=== PATIENT | male | born 1955 | race Caucasian/White ===

== ENCOUNTER 2019-07-01 12:37 | Outpatient (CLI) | payer MEDICARE, BC ==
--- NOTE | 2019-07-01 13:27 | XRAY Report ---
Reason: ANKLE PAIN Procedure Date: 07/01/2019 Accession Number: [id number] / [id number] Procedure: XR - Ankle 3 View RT CPT Code: Final Report FULL RESULT: EXAM: RIGHT ANKLE RADIOGRAPHY EXAM DATE: 07/01/2019 01:00 PM. CLINICAL HISTORY: ANKLE PAIN. Twisted ankle on 06/18/2019. COMPARISON: None. TECHNIQUE: 3 views. FINDINGS: Bones: There is a screw from medial to lateral within the body of the talus. There are no lucent or sclerotic lesions. There is no fracture. Joints: Small ankle joint effusion. No subluxations. The ankle mortise is normally aligned. Soft Tissues: Normal. No soft tissue swelling. IMPRESSION: 1. Small right ankle joint effusion. 2. Screw in the body of the talus. 3. No fracture or malalignment. RADIA The call report notification system was initiated by Dr. Gabe Fernandez at 01:27 PM on 07/01/2019.
== END 2019-07-01 12:38 | disposition home or self-care (01) ==
LOC: DI 12:37
PROVIDERS: ATTEND Internal Medicine
DX: M25.571 Pain in right ankle and joints of right foot (principal); M25.471 Effusion, right ankle

== ENCOUNTER 2019-09-07 12:05 | Outpatient (CLI) | payer MEDICARE, OTHER ==
--- NOTE | 2019-09-07 14:12 | XRAY Report ---
Reason: PAIN IN RIGHT ANKLE AND JOINTS OF RIGHT FOOT Procedure Date: 09/07/2019 Accession Number: [id number] / [id number] Procedure: XR - Foot 3 View RT CPT Code: Final Report FULL RESULT: EXAM: RIGHT FOOT RADIOGRAPHY EXAM DATE: 09/07/2019 12:30 PM. CLINICAL HISTORY: Pain in right ankle and joints of right foot. COMPARISON: None. TECHNIQUE: 3 views. FINDINGS: Bones: There are cortical step-offs at the mid diaphysis of the 1st proximal phalanx, consistent with fracture. No additional fractures detected. Intact fixation screw at the talus. No abnormal subcutaneous radiopaque foreign bodies identified. IMPRESSION: Findings consistent with nondisplaced fracture at the 1st proximal phalanx. RADIA
--- NOTE | 2019-09-07 14:12 | XRAY Report ---
Reason: PAIN IN RIGHT ANKLE AND JOINTS OF RIGHT FOOT Procedure Date: 09/07/2019 Accession Number: [id number] / [id number] Procedure: XR - Ankle 3 View RT CPT Code: Final Report FULL RESULT: EXAM: RIGHT ANKLE RADIOGRAPHY EXAM DATE: 09/07/2019 12:30 PM. CLINICAL HISTORY: Pain in right ankle and joints of right foot. COMPARISON: ANKLE 3 VIEW RT 07/01/2019 12:41 PM. TECHNIQUE: 3 views. FINDINGS: Bones: Intact screw at the talus. Subtle cortical step-off suggesting possible flake fracture at the distal aspect of the dorsal talus, seen on lateral view. No fractures identified elsewhere. Joints: Small ankle joint effusion suggested. Soft tissue prominence at the ankle. IMPRESSION: Question of small flake fracture at the distal talus, seen on lateral view. RADIA
== END 2019-09-07 12:06 | disposition home or self-care (01) ==
LOC: DI 12:05
PROVIDERS: ATTEND Internal Medicine
DX: M25.571 Pain in right ankle and joints of right foot (principal)

== ENCOUNTER 2020-09-20 12:50 | Inpatient (IN) | payer MEDICARE, BC ==
--- NOTE | 2020-09-20 14:16 | ED Physician Documentation ---
History of Present Illness - Stated complaint Stated Complaint: WOBBLY/INCOHERENT - Chief complaint Chief Complaint: General - History obtained from History obtained from: Patient, Family (sister) - Additonal information Additional information: 64-year-old gentleman arrives accompanied by his sister to the emergency department for evaluation of altered mental status this morning. He has a long history of epilepsy since age 8 and has had a couple of craniotomies for same the most recent being 40 years ago. He is never been seizure-free and he is still maintained on multiple seizure medications including Fycompa Depakote Trileptal and lorazepam. Recently the Fycompa doses have been going up. Early this morning he awoke with some neck pain and took a Percogesic. Then got up later and his sister said he was quite slow to answer questions and nodding off and his brain just did not seem to be working right. He seems back to baseline now without specific complaints. It is unclear if he took a single Percogesic or multiple since the patient does not actually remember getting up and taking it. Review of Systems Ten Systems: 10 systems reviewed and negative Constitutional: denies: Fever, Chills Eyes: reports: Reviewed and negative Ears: reports: Reviewed and negative Nose: reports: Reviewed and negative Throat: reports: Reviewed and negative Cardiac: reports: Reviewed and negative PD PAST MEDICAL HISTORY - Past Medical History Past Medical History: Yes Respiratory: COPD Neuro: Seizure disorder - Past Surgical History Past Surgical History: Yes Neuro: Craniotomy - Present Medications Home Medications: Ambulatory Orders Medication Instructions Recorded Confirmed Albuterol Sulf [Ventolin Hfa 40 mg .ROUTE DAILY 09/20/20 09/20/20 Inhaler] Atenolol [Tenormin] 25 mg PO DAILY 09/20/20 09/20/20 Budesonide [Pulmicort Flexhaler] 80 mcg .ROUTE BID 09/20/20 09/20/20 Divalproex ER [Depakote ER] 250 mg PO QID 09/20/20 09/20/20 Lorazepam [Ativan] 1 mg PO BID 09/20/20 09/20/20 OXcarbazepine [Trileptal] 600 mg PO BID 09/20/20 09/20/20 Perampanel [Fycompa] 8 mg PO DAILY 09/20/20 09/20/20 Pravastatin [Pravachol] 40 mg PO DAILY 09/20/20 09/20/20 Umeclidinium [place] [Incruse 62.5 mcg .ROUTE DAILY 09/20/20 09/20/20 Ellipta] Zonisamide [Zonegran] 100 mg PO QID 09/20/20 09/20/20 - Allergies Allergies/Adverse Reactions: Allergies Allergy/AdvReac Type Severity Reaction Status Date / Time Iodinated Contrast Media Allergy Rash Verified 09/20/20 13:02 - Social History Does the pt smoke?: Yes Smoking Status: Current every day smoker Does the pt drink ETOH?: No Does the pt have substance abuse?: Yes Substance Use and Type: CBD oil / Products - Immunizations Immunizations are current?: Yes - POLST Patient has POLST: No PD ED PE NORMAL - Vitals Vital signs reviewed: Yes - General General: No acute distress, Other (He is slow to answer questions, states the date is September 18, has some word finding difficulties, but the sister says he is at his baseline.) - HEENT HEENT: PERRL (With nystagmus) - Neck Neck: Supple, no meningeal sign, No bony TTP - Cardiac Cardiac: RRR, No murmur - Respiratory Respiratory: No respiratory distress - Abdomen Abdomen: Normal bowel sounds, Soft, Non tender - Back Back: No CVA TTP, No spinal TTP - Derm Derm: Normal color, Warm and dry - Extremities Extremities: No edema, No calf tenderness / cord - Neuro Neuro: No motor deficit, No sensory deficit, Other (He is alert oriented to person and place and close on time. He has good strength throughout all 4 extremities. He has nystagmus and mild ataxia on [id number] testing.) Eye Opening: Spontaneous Motor: Obeys Commands - Psych Psych: Normal mood, Normal affect Results - Vitals Vitals: Vital Signs - 24 hr 09/20/20 09/20/20 09/20/20 13:03 13:36 14:48 Temperature 36.4 C L Heart Rate 57 L 58 L 55 L Respiratory 18 14 21 Rate Blood Pressure 104/58 L 113/57 L 117/63 O2 Saturation 99 100 97 09/20/20 09/20/20 09/20/20 16:10 16:56 18:09 Temperature 36.7 C Heart Rate 61 55 L 59 L Respiratory 20 20 23 Rate Blood Pressure 129/67 113/61 118/72 O2 Saturation 99 100 100 09/20/20 20:07 Temperature Heart Rate 56 L Respiratory 18 Rate Blood Pressure 117/68 O2 Saturation 100 Oxygen O2 Source Room air - EKG (time done) 1508 Rate: Rate (enter#) (55) Rhythm: NSR [place]: Normal Intervals: Normal [place] QRS: Normal Ischemia: Normal ST segments Computer interpretation: Agree with computer - Labs Labs: Laboratory Tests 09/20/20 09/20/20 09/20/20 14:26 14:26 14:26 WBC 7.4 RBC 4.10 L Hgb 12.9 L Hct 40.4 L MCV 98.5 H MCH 31.5 H MCHC 31.9 L RDW 12.5 Plt Count 155 MPV 11.6 H Neut # (Auto) 3.5 Lymph # (Auto) 2.6 [place] # (Auto) 1.1 H Eos # (Auto) 0.2 Baso # (Auto) 0.0 Absolute Nucleated RBC 0.00 Nucleated RBC % 0.0 Sodium 147 H Potassium 4.7 Chloride 111 Carbon Dioxide 25 Anion Gap 11.0 BUN 20 Creatinine 0.7 Estimated GFR (MDRD) 114 Glucose 94 Calcium 9.6 Total Bilirubin 0.5 AST 20 ALT 18 Alkaline Phosphatase 45 Ammonia 66.1 H Total Protein 6.3 L Albumin 3.3 Globulin 3.0 Albumin/Globulin Ratio 1.1 Last Dose Date Not Reportable Last Dose Time Not Reportable Urine Opiates Screen Ur Oxycodone Screen Urine Methadone Screen Ur Propoxyphene Screen Ur Barbiturates Screen Valproic Acid 82.6 Ur Tricyclics Screen Ur Phencyclidine Scrn Ur Amphetamine Screen U Methamphetamines Scrn U Benzodiazepines Scrn Urine Cocaine Screen U Cannabinoids Screen Ethyl Alcohol < 5.0 09/20/20 09/20/20 09/20/20 16:21 17:55 17:55 WBC RBC Hgb Hct MCV MCH MCHC RDW Plt Count MPV Neut # (Auto) Lymph # (Auto) [place] # (Auto) Eos # (Auto) Baso # (Auto) Absolute Nucleated RBC Nucleated RBC % Sodium 146 H Potassium 4.1 Chloride 111 Carbon Dioxide 24 Anion Gap 11.0 BUN 22 H Creatinine 0.7 Estimated GFR (MDRD) 114 Glucose 105 H Calcium 9.7 Total Bilirubin AST ALT Alkaline Phosphatase Ammonia 67.0 H Total Protein Albumin Globulin Albumin/Globulin Ratio Last Dose Date UNKNOWN Last Dose Time UNKNOWN Urine Opiates Screen NEGATIVE Ur Oxycodone Screen NEGATIVE Urine Methadone Screen NEGATIVE Ur Propoxyphene Screen NEGATIVE Ur Barbiturates Screen NEGATIVE Valproic Acid 72.0 Ur Tricyclics Screen NEGATIVE Ur Phencyclidine Scrn NEGATIVE Ur Amphetamine Screen NEGATIVE U Methamphetamines Scrn NEGATIVE U Benzodiazepines Scrn POSITIVE H Urine Cocaine Screen NEGATIVE U Cannabinoids Screen NEGATIVE Ethyl Alcohol 09/20/20 09/20/20 21:41 21:41 WBC RBC Hgb Hct MCV MCH MCHC RDW Plt Count MPV Neut # (Auto) Lymph # (Auto) [place] # (Auto) Eos # (Auto) Baso # (Auto) Absolute Nucleated RBC Nucleated RBC % Sodium 146 H Potassium 4.2 Chloride 107 Carbon Dioxide 24 Anion Gap 15.0 H BUN 20 Creatinine 0.7 Estimated GFR (MDRD) 114 Glucose 109 H Calcium 9.5 Total Bilirubin AST ALT Alkaline Phosphatase Ammonia 82.4 H* Total Protein Albumin Globulin Albumin/Globulin Ratio Last Dose Date Not Reportable Last Dose Time Not Reportable Urine Opiates Screen Ur Oxycodone Screen Urine Methadone Screen Ur Propoxyphene Screen Ur Barbiturates Screen Valproic Acid 60.6 Ur Tricyclics Screen Ur Phencyclidine Scrn Ur Amphetamine Screen U Methamphetamines Scrn U Benzodiazepines Scrn Urine Cocaine Screen U Cannabinoids Screen Ethyl Alcohol - Rads (name of study) Ct Head Radiology: Final report received, Discussed with venkat JACK MEDICAL DECISION MAKING - ED course ED course: 64-year-old gentleman with long history of epilepsy on multiple meds for same presents with altered mental status now improved. He did have mild asterixis on exam and is on Depakote. So VHE is a possibility as well as hyponatremia from the Trileptal, or supratherapeutic levels of any of his other meds. He was found to have hyperammonemia at a level of 66 with a therapeutic Depakote level at 82.6. This was discussed with poison control and they recommend p.o. fluids, free water especially noting the sodium is up and a redraw in 4 hours to make sure it is improving and if so he could probably be discharged if no other pertinent positive findings on a decreased dose of Depakote. IMPRESSION: 1. CT head without acute intracranial abnormalities. Specifically, no acute hemorrhage, suspicious mass, or mass effect. 2. Chronic right frontoparietal encephalomalacia underlying prior surgical changes of right frontal craniotomy. 3. Age-related senescent changes and sequela of chronic small vessel ischemic disease. 4. Asymmetrically sized choroid plexus with the right side being larger than the left. No mass effect or hydrocephalus. At 6 PM the levels were redrawn, his Depakote level went down to 72 but the ammonia was basically the same. I recontacted poison control and this time he had me to speak with the boots and shoes supervisor, Dr. Xie. He said to check it again in 4 hours because they definitely want to see the ammonia trending down before discharge. 10 PM levels unfortunately continue to show even more of an elevation in ammonia and spoke with Dr. Zazueta and he will observe the patient. Departure - Departure Disposition: ED Place in Observation Clinical Impression: Hyperammonemia, Encephalopathy Epilepsy Qualifiers: Epilepsy type: unspecified Intractability: intractable Status epilepticus: without status epilepticus Qualified Code(s): G40.919 - Epilepsy, unspecified, intractable, without status epilepticus Condition: Stable
[2020-09-20 14:35] LABS: BASOPHILS % (AUTO) 0.4 %; EOSINOPHILS # (AUTO) 0.2 10^3/uL (0.0-0.7); HCT - HEMATOCRIT 40.4 % (42.0-52.0); HGB - HEMOGLOBIN 12.9 g/dL (14.0-18.0); LYMPHOCYTES # (AUTO) 2.6 10^3/uL (1.5-3.5); LYMPHOCYTES % (AUTO) 35.3 %; MEAN CORPUSCULAR HEMOGLOBIN 31.5 pg (27.0-31.0); MEAN CORPUSCULAR HGB CONC 31.9 g/dL (32.0-36.0); MEAN CORPUSCULAR VOLUME 98.5 fL (80.0-94.0); MEAN PLATELET VOLUME 11.6 fL (7.4-11.4); MONOCYTES # (AUTO) 1.1 10^3/uL (0.0-1.0); MONOCYTES % (AUTO) 14.5 %; NEUTROPHILS # (AUTO) 3.5 10^3/uL (1.5-6.6); NEUTROPHILS % (AUTO) 47.4 %; PLT - PLATELET COUNT 155 10^3/uL (130-450); RED CELL DISTRIBUTION WIDTH 12.5 % (12.0-15.0); WHITE BLOOD COUNT 7.4 x10^3/uL (4.8-10.8)
[2020-09-20 14:49] LABS: ALBUMIN 3.3 g/dL (3.2-5.5); ALBUMIN/GLOBULIN RATIO 1.1 (1.0-2.2); ALKALINE PHOSPHATASE 45 IU/L (42-121); ALT ALANINE AMINOTRANSFERASE 18 IU/L (10-60); AST ASPARTATE AMINOTRANSFERASE 20 IU/L (10-42); BILIRUBIN,TOTAL 0.5 mg/dL (0.2-1.0); BUN - BLOOD UREA NITROGEN 20 mg/dL (6-20); CALCIUM 9.6 mg/dL (8.5-10.3); CARBON DIOXIDE - CO2 25 mmol/L (21-32); CHLORIDE 111 mmol/L (101-111); CREATININE 0.7 mg/dL (0.6-1.2); ETOH - ETHANOL < 5.0 mg/dL; GFR - MDRD 114 (>89); GLUCOSE 94 mg/dL (70-100); POTASSIUM 4.7 mmol/L (3.5-5.0); SODIUM 147 mmol/L (135-145); TOTAL PROTEIN 6.3 g/dL (6.7-8.2); VALPROIC ACID (DEPAKOTE) 82.6 ug/mL
--- NOTE | 2020-09-20 15:42 | CT Report ---
PROCEDURE: HEAD WO INDICATIONS: altered TECHNIQUE: Noncontrast 4.5 mm thick angled axial sections acquired from the foramen magnum to the vertex. For r adiation dose reduction, the following was used: automated exposure control, adjustment of mA and/or kV according to patient size. COMPARISON: None. FINDINGS: Image quality: Excellent. CSF spaces: Basal cisterns are patent. No extra-axial fluid collections. Ventricles are symmetric in size and configuration. Brain: No midline shift. No intracranial masses or acute intracranial hemorrhage. Sifuentes-white matte r interface is normal. There is right frontoparietal encephalomalacia underlying postsurgical change s of previous right frontal craniotomy. There is asymmetric size of choroid plexus bilaterally. This is seen in the trigone region of the lateral ventricles. The right side is larger than the left. Chor oid plexus calcifications are present. There is also mild diffuse cortical volume loss. Mild perivent ricular white matter hypodensity in relation compatible with sequela of chronic small vessel ischemic disease. Atherosclerotic calcifications of the bilateral intracranial segments of the internal carot id arteries are visualized. Skull and face: Calvarium and visualized facial bones are intact, without suspicious lesions or acut e calvarial fractures. Postoperative changes from remote right frontal craniotomy.. Sinuses: Visualized sinuses and mastoids are clear. IMPRESSION: 1. CT head without acute intracranial abnormalities. Specifically, no acute hemorrhage, suspicious ma ss, or mass effect. 2. Chronic right frontoparietal encephalomalacia underlying prior surgical changes of right frontal c raniotomy. 3. Age-related senescent changes and sequela of chronic small vessel ischemic disease. 4. Asymmetrically sized choroid plexus with the right side being larger than the left. No mass effect or hydrocephalus. Reviewed by: Luis Vogt MD on 09/20/2020 3:41 PM PDT Approved by: Luis Vogt MD on 09/20/2020 3:41 PM PDT Station ID: [id number]
[2020-09-20 16:28] LABS: MUDS CUTOFF CONCENTRATIONS CUTOFF CONC BELOW:
[2020-09-20 16:40] LABS: AMPHETAMINE SCREEN,URINE NEGATIVE (NEGATIVE); BARBITURATE SCREEN,UR NEGATIVE (NEGATIVE); BENZODIAZEPINES SCREEN, URINE POSITIVE (NEGATIVE); COCAINE SCREEN URINE NEGATIVE (NEGATIVE); METHADONE SCREEN, URINE NEGATIVE (NEGATIVE); METHAMPHETAMINES SCREEN, URINE NEGATIVE (NEGATIVE); OPIATE SCREEN, URINE NEGATIVE (NEGATIVE); OXYCODONE SCREEN, URINE NEGATIVE (NEGATIVE); PROPOXYPHENE SCREEN, URINE NEGATIVE (NEGATIVE); THC CANNABINOID SCREEN, URINE NEGATIVE (NEGATIVE); TRICYCLIC ANTIDEPRESSANT,URINE NEGATIVE (NEGATIVE)
[2020-09-20 18:15] LABS: BUN - BLOOD UREA NITROGEN 22 mg/dL (6-20); CALCIUM 9.7 mg/dL (8.5-10.3); CARBON DIOXIDE - CO2 24 mmol/L (21-32); CHLORIDE 111 mmol/L (101-111); CREATININE 0.7 mg/dL (0.6-1.2); GFR - MDRD 114 (>89); GLUCOSE 105 mg/dL (70-100); POTASSIUM 4.1 mmol/L (3.5-5.0); SODIUM 146 mmol/L (135-145)
[2020-09-20] MEDS ORDERED: DEXTROSE 5%-0.45% NACL 1,000 ML IV STA (18:56)
[2020-09-20 22:02] LABS: BUN - BLOOD UREA NITROGEN 20 mg/dL (6-20); CALCIUM 9.5 mg/dL (8.5-10.3); CARBON DIOXIDE - CO2 24 mmol/L (21-32); CHLORIDE 107 mmol/L (101-111); CREATININE 0.7 mg/dL (0.6-1.2); GFR - MDRD 114 (>89); GLUCOSE 109 mg/dL (70-100); POTASSIUM 4.2 mmol/L (3.5-5.0); SODIUM 146 mmol/L (135-145); VALPROIC ACID (DEPAKOTE) 60.6 ug/mL
[2020-09-20] MEDS ORDERED: LORazepam 2 MG/ML VIAL IVP STA (22:16)
[2020-09-20] MEDS ORDERED: NICOTINE 21 MG PATCH TOP STA (22:16)
[2020-09-20] MEDS ORDERED: ONDANSETRON ODT 4 MG TABLET TL PRN (22:32)
[2020-09-20] MEDS ORDERED: ACETAMINOPHEN 325 MG TABLET PO PRN (22:32)
[2020-09-20] MEDS ORDERED: SODIUM CHLORIDE FLUSH 0.9% 10 ML SYRINGE IVP PRN (22:32)
--- NOTE | 2020-09-20 22:35 | HISTORY & PHYSICAL EXAMINATION ---
Chief Complaint - Chief Complaint Chief Complaint: Unsteadiness History of Present Illness - Admitted From Admitted From:: Home - History Obtained From Records Reviewed: Yes History obtained from: Patient, Sister, ER Physician, EMR - History of Present Illness HPI Comment/Other: This is a 64-year-old male with a past medical history significant for epilepsy, COPD who presents today from home as his sister was concerned that he was quite unsteady on his feet. History is obtained from both the patient and his sister who is present at bedside. The patient has unfortunately poorly controlled epilepsy with near daily seizures. He is on multiple antiepileptics at home. His sister tells me that he is normally a little unsteady and can be interm ittently confused and due to the antiepileptics as well as occasional episodes of being postictal. He can also be mildly sedated at times it due to the Ativan he is on. She states that this morning he was much more unsteady compared to usual and was not himself. The patient admits to taking Percogesic and believes he only took 1 tablet last night. He takes this once a week for ankle pain which is chronic for him. His most recent seizure was today in the emergency department. He reports that they are usually minor and predominately involve his head and right upper extremity. He does not have grand mal seizures. His neurologist is at [facility]. He was recently started on a new medication called Fycompa. He has been on Depakote for many years. He denies any prior history of liver disease. He does not drink alcohol. He denies passing out today. In the emergency department, he was found to be afebrile with temperature of 36.4 C. His heart rate was in the 50s. Blood pressure was 113/57. He was not tachypneic and saturating well on room air. Labs were significant for his sodium of 147 and an ammonia level of 66.1. Initial Depakote level is 82.6. These findings were discussed with poison control who recommended rechecking labs in 4 hours. His Depakote level was trending down to 72 but his ammonia remained elevated at 67. They recommended rechecking labs again in 4 hours to ensure that the ammonia begins to trend down. This later increased to 82.4. Given the rise in the ammonia level, medicine was consulted for admission. I did discuss goals of care the patient and he would like to be a full code. History - Past Medical History Respiratory: reports: COPD Neuro: reports: Seizure disorder MRSA Hx?: No - Past Surgical History Neuro: reports: Craniotomy - Family & Social History Family History Comment/Other: His father from metastatic renal cancer. His mother had hypertension. His older brother was recently diagnosed with coronary artery disease and underwent CABG. Living arrangement: At home Living Situation: With family Social History Notes: He lives at home with his sister, Lesley. He previously worked at [employer] and retired in 1994. He smokes a pack a day for about 25 years. Denies alcohol use. - POLST Patient has POLST: No Meds/Allgy - Home Medications Home Medications: Ambulatory Orders Medication Instructions Recorded Confirmed Albuterol Sulf [Ventolin Hfa 40 mg .ROUTE DAILY 09/20/20 09/20/20 Inhaler] Atenolol [Tenormin] 25 mg PO DAILY 09/20/20 09/20/20 Budesonide [Pulmicort Flexhaler] 80 mcg .ROUTE BID 09/20/20 09/20/20 Divalproex ER [Depakote ER] 250 mg PO QID 09/20/20 09/20/20 Lorazepam [Ativan] 1 mg PO BID 09/20/20 09/20/20 OXcarbazepine [Trileptal] 600 mg PO BID 09/20/20 09/20/20 Perampanel [Fycompa] 8 mg PO DAILY 09/20/20 09/20/20 Pravastatin [Pravachol] 40 mg PO DAILY 09/20/20 09/20/20 Umeclidinium [place] [Incruse 62.5 mcg .ROUTE DAILY 09/20/20 09/20/20 Ellipta] Zonisamide [Zonegran] 100 mg PO QID 09/20/20 09/20/20 - Allergies Allergies/Adverse Reactions: Allergies Allergy/AdvReac Type Severity Reaction Status Date / Time Iodinated Contrast Media Allergy Rash Verified 09/20/20 13:02 Review of Systems - Constitutional Constitutional: denies: Fatigue, Fever, Chills - Eyes Eyes: denies: Blurred vision - Ears, Nose & Throat Ears, Nose & Throat: denies: Nasal discharge, Sore throat - Cardiovascular Cariovascular: denies: Chest pain, Edema, Lightheadedness, Syncope, Exertional dyspnea, Decr. exercise tolerance - Respiratory Respiratory: denies: Cough, SOB at rest, SOB with exertion - Gastrointestinal Gastrointestinal: denies: Abdominal pain, Constipation, Nausea, Vomiting - Genitourinary Genitourinary: denies: Dysuria, Urgency, Hematuria - Musculoskeletal Musculoskeletal: reports: Joint pain - Neurological Neurological: reports: Abnormal gait, Seizures. denies: General weakness, Focal weakness, Dizziness, Numbness - Hematologic/Lymphatic Hematologic/Lymphatic: denies: Bleeding tendencies - All Other Systems All Other Systems: reports: Reviewed and negative Prior Level of Functionality: He ambulates with a walker at baseline due to ankle pain. Exam - Vital Signs Reviewed Vital Signs: Yes Vital Signs: Vital Signs x48h Temp Pulse Resp BP Pulse Ox 09/20/20 20:07 56 L 18 117/68 100 09/20/20 18:09 59 L 23 118/72 100 09/20/20 16:56 55 L 20 113/61 100 09/20/20 16:10 36.7 C 61 20 129/67 99 09/20/20 14:48 55 L 21 117/63 97 - Physical Exam General Appearance: positive: No acute distress, Alert Eyes Bilateral: positive: Normal inspection, Conjunctivae nml ENT: positive: ENT inspection nml Neck: positive: Nml inspection Respiratory: positive: No respiratory distress. negative: Wheezes, Rales Cardiovascular: positive: Regular rate & rhythm, No murmur. negative: Tachycardia Abdomen: positive: Non-tender, No distention. negative: Tenderness, Guarding, Rebound Skin: positive: Warm, Dry Extremities: positive: No pedal edema Neurologic/Psychiatric: positive: Sensation nml, Other (Asterixis noted. He has 5 out of 5 motor strength in all 4 extremities.). negative: Disoriented to person, Disoriented to place, Disoriented to time, Facial droop, Slurred/abnml speech Conclusion/Plan - Problem List (1) Encephalopathy Conclusion/Plan: This appears to be secondary to hyperammonemia due to the Depakote. The CT of the head showed no acute abnormalities but revealed chronic encephalomalacia. His ammonia level continues to increase despite trending down of his Depakote level. We will hold his Depakote for the time being and start him on lactulose. Will discuss with pharmacy if carnitine is available. We will recheck ammonia in the morning and I am hopeful if his mentation is improving and it is trending down then he can be discharged home. (2) Hyperammonemia Conclusion/Plan: This is likely secondary to the Depakote. He does not have evidence of liver disease. This is contributing to his encephalopathy. We will start him on lactulose and hold Depakote. Will discuss with pharmacy if carnitine is available. (3) Epilepsy Conclusion/Plan: He unfortunately has epilepsy that is poorly controlled with seizures on a near daily basis. We will continue his home antiepileptics but will hold his Depakote given the hyperammonemia. We will asked the daytime provider to discuss with neurology regarding other antibiotics that can be used as Depakote will likely need to be discontinued on discharge. Qualifiers: Epilepsy type: unspecified Intractability: intractable Status epilepticus: without status epilepticus Qualified Code(s): G40.919 - Epilepsy, unspecified, intractable, without status epilepticus (4) Hypernatremia Conclusion/Plan: His sodium is elevated at 146 and this is likely due to poor oral intake. He did receive D5/half-normal in the ER without improvement. We will place him on D5 at 100 mL an hour and recheck a BMP in the morning. We will encourage water intake. (5) COPD (chronic obstructive pulmonary disease) Conclusion/Plan: Stable and not in exacerbation. We will continue his home inhalers and albutero l as needed. - Lab Results Lab results reviewed: Yes Fish Bones: 09/20/20 14:26 09/20/20 21:41 - Diagnostic Imaging Results Diagnostic Imaging Results: positive: Final report reviewed Core Measures - Anticipated LOS I expect patient to be DC'd or transferred within 96 hours.: Yes - Issues Hospital Issues and Management Plan: This is a 64-year-old male with epilepsy who presents due to altered mental status. Found to have hyperammonemia that continues to increase despite ringdown of his valproic acid. Will place in observation for lactulose and trending of his ammonia. - DVT/VTE - Prophylaxis VTE/DVT Device ordered at admit?: Yes VTE/DVT Prophylaxis med ordered at admit?: No Not Ordered - Medical Reason: Not indicated
[2020-09-20] MEDS ORDERED: DEXTROSE 5% 1,000 ML IV SCH (23:00)
[2020-09-20] MEDS ORDERED: PERAMPANEL 8 MG PO SCH (23:30)
[2020-09-20] MEDS: SODIUM CHLORIDE FLUSH 0.9% 10 ML SYRINGE IVP SCH (23:44)
[2020-09-20] MEDS: LACTULOSE 10 GM /15 ML UDC PO SCH (23:44)
[2020-09-20] MEDS ORDERED: NON FORMULARY MED PO SCH (23:45)
[2020-09-21 01:25] LABS: B. PARAPERTUSSIS- RESP PCR PAN NOT DETECTED; B. PERTUSSIS- RESP PCR PANEL NOT DETECTED; C. PNEUMONIAE- RESP PCR PANEL NOT DETECTED; CORONAVIRUS 229E-RESP PCR NOT DETECTED; CORONAVIRUS HKU1-RESP PCR NOT DETECTED; CORONAVIRUS NL63-RESP PCR NOT DETECTED; CORONAVIRUS OC43-RESP PCR NOT DETECTED; HUMAN METAPNEUMOVIRUS NOT DETECTED; INFLUENZA A- RESP PCR PANEL NOT DETECTED; INFLUENZA B - RESP PCR PANEL NOT DETECTED; M. PNEUMONIAE- RESP PCR PANEL NOT DETECTED; PARAINFLUENZA VIRUS 1 NOT DETECTED; PARAINFLUENZA VIRUS 2 NOT DETECTED; PARAINFLUENZA VIRUS 3 NOT DETECTED; PARAINFLUENZA VIRUS 4 NOT DETECTED; RHINOVIRUS/ENTEROVIRUS NOT DETECTED; RSV- RESP PCR PANEL NOT DETECTED; SARS-CoV-2 -RESP PCR PANEL NOT DETECTED
[2020-09-21] MEDS: ZONISAMIDE 100 MG PO SCH ×5 (02:21→21:40)
[2020-09-21] MEDS: PRAVASTATIN 40 MG TABLET PO SCH ×2 (04:44→21:42)
[2020-09-21 04:48] LABS: BASOPHILS % (AUTO) 0.6 %; EOSINOPHILS # (AUTO) 0.2 10^3/uL (0.0-0.7); EOSINOPHILS % (AUTO) 3.6 %; HCT - HEMATOCRIT 37.5 % (42.0-52.0); HGB - HEMOGLOBIN 12.2 g/dL (14.0-18.0); LYMPHOCYTES # (AUTO) 2.9 10^3/uL (1.5-3.5); LYMPHOCYTES % (AUTO) 43.1 %; MEAN CORPUSCULAR HEMOGLOBIN 31.9 pg (27.0-31.0); MEAN CORPUSCULAR HGB CONC 32.5 g/dL (32.0-36.0); MEAN CORPUSCULAR VOLUME 97.9 fL (80.0-94.0); MEAN PLATELET VOLUME 11.5 fL (7.4-11.4); MONOCYTES # (AUTO) 0.8 10^3/uL (0.0-1.0); MONOCYTES % (AUTO) 11.8 %; NEUTROPHILS # (AUTO) 2.7 10^3/uL (1.5-6.6); NEUTROPHILS % (AUTO) 40.6 %; PLT - PLATELET COUNT 140 10^3/uL (130-450); RED BLOOD COUNT 3.83 10^6/uL (4.70-6.10); WHITE BLOOD COUNT 6.6 x10^3/uL (4.8-10.8)
[2020-09-21 04:59] LABS: CALCIUM 8.3 mg/dL (8.5-10.3); CREATININE 0.7 mg/dL (0.6-1.2); PHOSPHORUS 3.3 mg/dL (2.5-4.6); POTASSIUM 3.6 mmol/L (3.5-5.0)
[2020-09-21] MEDS: LACTULOSE 10 GM /15 ML UDC PO SCH ×3 (05:55→21:42)
[2020-09-21] MEDS: SODIUM CHLORIDE FLUSH 0.9% 10 ML SYRINGE IVP SCH ×2 (08:01→17:48)
[2020-09-21] MEDS: OXcarbazepine 150 MG TABLET PO SCH (08:07)
[2020-09-21] MEDS: LORazepam 1 MG TABLET PO SCH ×2 (08:07→21:39)
[2020-09-21] MEDS: atenoloL 25 MG TABLET PO SCH (08:07)
[2020-09-21] MEDS ORDERED: PRAVASTATIN 40 MG TABLET PO SCH (09:00)
[2020-09-21] MEDS ORDERED: OXCARBAZEPINE 600 MG PO SCH (09:00)
[2020-09-21] MEDS ORDERED: ATENOLOL 50 MG PO SCH (09:00)
[2020-09-21] MEDS ORDERED: NON FORMULARY MED (Albuterol Sulf [Ventolin Hfa Inhaler] 200 PUFFS/18 GM Inhaler) SCH (09:00)
[2020-09-21] MEDS ORDERED: PERAMPANEL 8 MG PO SCH ×2 (09:00→21:00)
[2020-09-21] MEDS ORDERED: LORAZEPAM 2 MG PO SCH (09:00)
--- NOTE | 2020-09-21 13:14 | PHARMACY PROGRESS NOTE ---
- Best Possible Medication History Admit Date and Time: 09/20/20 1236 Processed by: Pharmacy Medication History completed: Yes Patient Interview: Completed (Pt interviewed by Juliana 09/21) Secondary Source(s): Pharmacy records, Insurance records As the person ultimately responsible for medication therapy, providers are able to order a medication from an existing home medication list in [facility] via the "Reconcile Routine" prior to Confirmation of that medication by sales support manager. Such practice is discouraged except when the physician, in their clinical judgment, deems that a medical need exists for a medication without regard to previous use.
[2020-09-21] MEDS: SODIUM CHLORIDE 0.9% 1,000 ML IV SCH (13:47)
--- NOTE | 2020-09-21 16:50 | PROVIDER PROGRESS NOTE ---
Subjective - Prog Note Date Prog Note Date: 09/21/20 - Subjective Pt reports feeling: Improved Subjective: Patient has no seizure, but patient's ammonia level is slightly elevated, Compared with yesterday evening. Patient is alert and orientated, patient is not confused. I Called patient's neurologist Dr. Yeung in , report pt's conditions to him, he recommend pt's Depakote dosage can be decreased to 250mg bid from previous 250mg Qid. Current Medications - Current Medications Current Medications: Active Medications Acetaminophen (Acetaminophen 325 Mg Tablet) 650 mg PO Q4HR PRN PRN Reason: Pain 1 to 4 Albuterol (Albuterol Neb 2.5 Mg/3 Ml) 2.5 mg INH RTQ4H PRN PRN Reason: Wheezing Atenolol (Atenolol 25 Mg Tablet) 25 mg PO DAILY [facility] Last Admin: 09/21/20 08:07 Dose: 25 mg Documented by: Budesonide (Budesonide 0.5 Mg/2 Ml Neb) 0.5 mg INH RTBID [facility] Sodium Chloride (Normal Saline 0.9%) 1,000 mls @ 100 mls/hr IV .Q10H [facility] Stop: 09/22/20 09:59 Last Admin: 09/21/20 13:47 Dose: 100 mls/hr Documented by: Lactulose (Lactulose 10 Gm /15 Ml Udc) 20 gm PO TID [facility] Last Admin: 09/21/20 13:47 Dose: 20 gm Documented by: Lorazepam (Lorazepam 1 Mg Tablet) 1 mg PO BID [facility] Last Admin: 09/21/20 08:07 Dose: 1 mg Documented by: Ondansetron HCl (Ondansetron Odt 4 Mg Tablet) 4 mg TL Q6HR PRN PRN Reason: Nausea / Vomiting Oxcarbazepine (Oxcarbazepine 150 Mg Tablet) 600 mg PO BID [facility] Last Admin: 09/21/20 08:07 Dose: 600 mg Documented by: Zonisamide [Zonegran (] 100 Mg Capsule) 1 each PO QID [facility] Erampanel [Fycompa] (8 Mg) 1 each PO HS [facility] Pravastatin Sodium (Pravastatin 40 Mg Tablet) 40 mg PO HS [facility] Last Admin: 09/21/20 04:44 Dose: Not Given Documented by: Sodium Chloride (Sodium Chloride Flush 0.9% 10 Ml Syringe) 10 ml IVP PRN PRN PRN Reason: NEEDED PER PROVIDER ORDERS Last Admin: 09/21/20 13:48 Dose: 10 ml Documented by: Sodium Chloride (Sodium Chloride Flush 0.9% 10 Ml Syringe) 10 ml IVP 0100,0900,1700 ROGELIO Last Admin: 09/21/20 08:01 Dose: 10 ml Documented by: Albuterol Sulf [Ventolin Hfa Inhaler] 40 mg .ROUTE DAILY 09/20/20 Atenolol [Tenormin] 25 mg PO DAILY 09/20/20 Budesonide [Pulmicort Flexhaler] 80 mcg .ROUTE BID 09/20/20 Divalproex ER [Depakote ER] 250 mg PO QID 09/20/20 Lorazepam [Ativan] 1 mg PO BID 09/20/20 OXcarbazepine [Trileptal] 600 mg PO BID 09/20/20 Perampanel [Fycompa] 8 mg PO DAILY 09/20/20 Pravastatin [Pravachol] 40 mg PO DAILY 09/20/20 Umeclidinium [place] [Incruse Ellipta] 62.5 mcg .ROUTE DAILY 09/20/20 Zonisamide [Zonegran] 100 mg PO QID 09/20/20 Objective - Vital Signs/Intake & Output Vital Signs: Vital Signs x48h Temp Pulse Resp BP Pulse Ox 09/21/20 16:00 36.6 C 65 19 123/63 98 Intake & Output: Intake & Output 09/18/20 09/19/20 09/20/20 09/21/20 23:59 23:59 23:59 23:59 Intake Total 1000 1361 Output Total 300 Balance 1000 1061 - Objective General Appearance: positive: No acute distress, Alert. negative: Lethargic Eyes Bilateral: positive: Normal inspection, PERRL, No lid inflammation ENT: positive: ENT inspection nml, No signs of dehydration. negative: Purulent nasal drainage Neck: positive: Nml inspection, Trachea midline. negative: Thyromegaly, Tracheal deviation Respiratory: positive: Chest non-tender, No respiratory distress. negative: Wheezes, Rales Cardiovascular: positive: Regular rate & rhythm, No murmur. negative: Tachycardia, Bradycardia, Systolic murmur, Diastolic murmur Peripheral Pulses: 2+ Radial (R), 2+ Radial (L) Abdomen: positive: Non-tender, Nml bowel sounds, No distention. negative: Tenderness Back: positive: Nml inspection. negative: CVA tenderness (R), CVA tenderness (L) Skin: positive: Color nml, Warm, Dry. negative: Cyanosis, Diaphoresis Extremities: positive: Non-tender, Nml appearance. negative: Calf tenderness Neurologic/Psychiatric: positive: Oriented x3, Sensation nml, Mood/affect nml. negative: Weakness, Sensory loss, Facial droop, Slurred/abnml speech, Depressed mood/affect - Lab Results Fish Bones: 09/21/20 04:35 09/21/20 04:35 Other Labs: Lab Results x24hrs 09/21/20 09/21/20 09/21/20 Range/Units 12:01 04:35 04:35 WBC (4.8-10.8) x10^3/uL RBC (4.70-6.10) 10^6/uL Hgb (14.0-18.0) g/dL Hct (42.0-52.0) % MCV (80.0-94.0) fL MCH (27.0-31.0) pg MCHC (32.0-36.0) g/dL RDW (12.0-15.0) % Plt Count (130-450) 10^3/uL MPV (7.4-11.4) fL Neut # (Auto) (1.5-6.6) 10^3/uL Lymph # (Auto) (1.5-3.5) 10^3/uL Bee # (Auto) (0.0-1.0) 10^3/uL Eos # (Auto) (0.0-0.7) 10^3/uL Baso # (Auto) (0.0-0.1) 10^3/uL Absolute Nucleated RBC x10^3/uL Nucleated RBC % /100WBC Sodium (135-145) mmol/L Potassium (3.5-5.0) mmol/L Chloride (101-111) mmol/L Carbon Dioxide (21-32) mmol/L Anion Gap (6-13) BUN (6-20) mg/dL Creatinine (0.6-1.2) mg/dL Estimated GFR (MDRD) (>89) Glucose (70-100) mg/dL Calcium (8.5-10.3) mg/dL Phosphorus (2.5-4.6) mg/dL Magnesium (1.7-2.8) mg/dL Ammonia 80.1 H* 72.9 H (7-35) umol/L Nasal Adenovirus (PCR) Nasal B. parapertussis DNA (PCR) Nasal Coronavir 229E PCR Nasal Coronavir HKU1 PCR Nasal Coronavir NL63 PCR Nasal Coronavir OC43 PCR Nasal Enterovir/Rhinovir PCR Nasal Influenza B PCR Nasal Influenza A PCR Nasal Parainfluen 1 PCR Nasal Parainfluen 2 PCR Nasal Parainfluen 3 PCR Nasal Parainfluen 4 PCR Nasal RSV (PCR) Nasal B.pertussis DNA PCR Nasal C.pneumoniae (PCR) Rivera Human Metapneumo PCR Nasal M.pneumoniae (PCR) Nasal SARS-CoV-2 (PCR) Last Dose Date UNK Last Dose Time UNK Valproic Acid 68.0 ug/mL 09/21/20 09/21/20 09/20/20 Range/Units 04:35 04:35 23:27 WBC 6.6 (4.8-10.8) x10^3/uL RBC 3.83 L (4.70-6.10) 10^6/uL Hgb 12.2 L (14.0-18.0) g/dL Hct 37.5 L (42.0-52.0) % MCV 97.9 H (80.0-94.0) fL MCH 31.9 H (27.0-31.0) pg MCHC 32.5 (32.0-36.0) g/dL RDW 12.0 (12.0-15.0) % Plt Count 140 (130-450) 10^3/uL MPV 11.5 H (7.4-11.4) fL Neut # (Auto) 2.7 (1.5-6.6) 10^3/uL Lymph # (Auto) 2.9 (1.5-3.5) 10^3/uL Bee # (Auto) 0.8 (0.0-1.0) 10^3/uL Eos # (Auto) 0.2 (0.0-0.7) 10^3/uL Baso # (Auto) 0.0 (0.0-0.1) 10^3/uL Absolute Nucleated RBC 0.00 x10^3/uL Nucleated RBC % 0.0 /100WBC Sodium 140 (135-145) mmol/L Potassium 3.6 (3.5-5.0) mmol/L Chloride 112 H (101-111) mmol/L Carbon Dioxide 21 (21-32) mmol/L Anion Gap 7.0 (6-13) BUN 19 (6-20) mg/dL Creatinine 0.7 (0.6-1.2) mg/dL Estimated GFR (MDRD) 114 (>89) Glucose 95 (70-100) mg/dL Calcium 8.3 L (8.5-10.3) mg/dL Phosphorus 3.3 (2.5-4.6) mg/dL Magnesium 2.0 (1.7-2.8) mg/dL Ammonia (7-35) umol/L Nasal Adenovirus (PCR) NOT DETECTED Nasal B. parapertussis DNA (PCR) NOT DETECTED Nasal Coronavir 229E PCR NOT DETECTED Nasal Coronavir HKU1 PCR NOT DETECTED Nasal Coronavir NL63 PCR NOT DETECTED Nasal Coronavir OC43 PCR NOT DETECTED Nasal Enterovir/Rhinovir PCR NOT DETECTED Nasal Influenza B PCR NOT DETECTED Nasal Influenza A PCR NOT DETECTED Nasal Parainfluen 1 PCR NOT DETECTED Nasal Parainfluen 2 PCR NOT DETECTED Nasal Parainfluen 3 PCR NOT DETECTED Nasal Parainfluen 4 PCR NOT DETECTED Nasal RSV (PCR) NOT DETECTED Nasal B.pertussis DNA PCR NOT DETECTED Nasal C.pneumoniae (PCR) NOT DETECTED Rivera Human Metapneumo PCR NOT DETECTED Nasal M.pneumoniae (PCR) NOT DETECTED Nasal SARS-CoV-2 (PCR) NOT DETECTED Last Dose Date Last Dose Time Valproic Acid ug/mL 09/20/20 09/20/20 09/20/20 Range/Units 21:41 21:41 17:55 WBC (4.8-10.8) x10^3/uL RBC (4.70-6.10) 10^6/uL Hgb (14.0-18.0) g/dL Hct (42.0-52.0) % MCV (80.0-94.0) fL MCH (27.0-31.0) pg MCHC (32.0-36.0) g/dL RDW (12.0-15.0) % Plt Count (130-450) 10^3/uL MPV (7.4-11.4) fL Neut # (Auto) (1.5-6.6) 10^3/uL Lymph # (Auto) (1.5-3.5) 10^3/uL Bee # (Auto) (0.0-1.0) 10^3/uL Eos # (Auto) (0.0-0.7) 10^3/uL Baso # (Auto) (0.0-0.1) 10^3/uL Absolute Nucleated RBC x10^3/uL Nucleated RBC % /100WBC Sodium 146 H (135-145) mmol/L Potassium 4.2 (3.5-5.0) mmol/L Chloride 107 (101-111) mmol/L Carbon Dioxide 24 (21-32) mmol/L Anion Gap 15.0 H (6-13) BUN 20 (6-20) mg/dL Creatinine 0.7 (0.6-1.2) mg/dL Estimated GFR (MDRD) 114 (>89) Glucose 109 H (70-100) mg/dL Calcium 9.5 (8.5-10.3) mg/dL Phosphorus (2.5-4.6) mg/dL Magnesium (1.7-2.8) mg/dL Ammonia 82.4 H* 67.0 H (7-35) umol/L Nasal Adenovirus (PCR) Nasal B. parapertussis DNA (PCR) Nasal Coronavir 229E PCR Nasal Coronavir HKU1 PCR Nasal Coronavir NL63 PCR Nasal Coronavir OC43 PCR Nasal Enterovir/Rhinovir PCR Nasal Influenza B PCR Nasal Influenza A PCR Nasal Parainfluen 1 PCR Nasal Parainfluen 2 PCR Nasal Parainfluen 3 PCR Nasal Parainfluen 4 PCR Nasal RSV (PCR) Nasal B.pertussis DNA PCR Nasal C.pneumoniae (PCR) Rivera Human Metapneumo PCR Nasal M.pneumoniae (PCR) Nasal SARS-CoV-2 (PCR) Last Dose Date Not Reportable Last Dose Time Not Reportable Valproic Acid 60.6 ug/mL 09/20/20 09/20/20 Range/Units 17:55 14:26 WBC (4.8-10.8) x10^3/uL RBC (4.70-6.10) 10^6/uL Hgb (14.0-18.0) g/dL Hct (42.0-52.0) % MCV (80.0-94.0) fL MCH (27.0-31.0) pg MCHC (32.0-36.0) g/dL RDW (12.0-15.0) % Plt Count (130-450) 10^3/uL MPV (7.4-11.4) fL Neut # (Auto) (1.5-6.6) 10^3/uL Lymph # (Auto) (1.5-3.5) 10^3/uL Bee # (Auto) (0.0-1.0) 10^3/uL Eos # (Auto) (0.0-0.7) 10^3/uL Baso # (Auto) (0.0-0.1) 10^3/uL Absolute Nucleated RBC x10^3/uL Nucleated RBC % /100WBC Sodium 146 H (135-145) mmol/L Potassium 4.1 (3.5-5.0) mmol/L Chloride 111 (101-111) mmol/L Carbon Dioxide 24 (21-32) mmol/L Anion Gap 11.0 (6-13) BUN 22 H (6-20) mg/dL Creatinine 0.7 (0.6-1.2) mg/dL Estimated GFR (MDRD) 114 (>89) Glucose 105 H (70-100) mg/dL Calcium 9.7 (8.5-10.3) mg/dL Phosphorus (2.5-4.6) mg/dL Magnesium (1.7-2.8) mg/dL Ammonia (7-35) umol/L Nasal Adenovirus (PCR) Nasal B. parapertussis DNA (PCR) Nasal Coronavir 229E PCR Nasal Coronavir HKU1 PCR Nasal Coronavir NL63 PCR Nasal Coronavir OC43 PCR Nasal Enterovir/Rhinovir PCR Nasal Influenza B PCR Nasal Influenza A PCR Nasal Parainfluen 1 PCR Nasal Parainfluen 2 PCR Nasal Parainfluen 3 PCR Nasal Parainfluen 4 PCR Nasal RSV (PCR) Nasal B.pertussis DNA PCR Nasal C.pneumoniae (PCR) Rivera Human Metapneumo PCR Nasal M.pneumoniae (PCR) Nasal SARS-CoV-2 (PCR) Last Dose Date UNKNOWN Not Reportable Last Dose Time UNKNOWN Not Reportable Valproic Acid 72.0 ug/mL ABX Reporting Has patient been on IV antibiotics over the past 48 hours?: No Sepsis Event Note (H) - Evaluation Current Stage of Sepsis: Ruled out Assessment/Plan - Problem List (1) Encephalopathy Impression: 09/21 pt's ammonia level is slight elevated compared with in the morning one. but Patient is alert, orientated, pt has no seizure, patient acute encephalopathy is resolved. Called Dr. Yeung, Patient neurologist in , He recommend reduce Depakote dosage dosage from 250 mg 4 times daily to twice daily. We will c ontinue monitor ammonia level, neuro checks (2) Hyperammonemia Conclusion/Plan: 09/21 pt's ammonia level is slight elevated compared with in the morning one But patient's depakote was hold, Patient has normal liver function test, Patient is alert and orientated. increase lactulose dosage to 20mg tid, add iVF, Continue senior cytogenetics laboratory director (3) Epilepsy Conclusion/Plan: 09/21 Stable, patient has no seizure. alled Dr. Yeung, Patient neurologist in , He recommend reduce Depakote dosage dosage from 250 mg 4 times daily to twice daily. We will continue monitor ammonia level, neuro checks (4) Hypernatremia resolved (5) COPD (chronic obstructive pulmonary disease) Stable and not in exacerbation. We will continue his home inhalers and albuterol as needed.
[2020-09-21] MEDS: ALBUTEROL NEB 2.5 MG/3 ML INH PRN (20:06)
[2020-09-21] MEDS: BUDESONIDE 0.5 MG/2 ML NEB INH SCH (20:06)
[2020-09-21] MEDS ORDERED: OXcarbazepine 150 MG TABLET PO ONE (21:49)
[2020-09-22] MEDS: SODIUM CHLORIDE 0.9% 1,000 ML IV SCH (00:31)
[2020-09-22] MEDS: OXcarbazepine 150 MG TABLET PO SCH ×2 (01:29→08:54)
[2020-09-22] MEDS: SODIUM CHLORIDE FLUSH 0.9% 10 ML SYRINGE IVP SCH ×2 (01:30→08:55)
[2020-09-22] MEDS: LACTULOSE 10 GM /15 ML UDC PO SCH (01:43)
[2020-09-22] MEDS ORDERED: TRILEPTAL PO ONE (02:00)
[2020-09-22 04:48] LABS: BASOPHILS % (AUTO) 0.4 %; EOSINOPHILS # (AUTO) 0.2 10^3/uL (0.0-0.7); EOSINOPHILS % (AUTO) 2.3 %; LYMPHOCYTES # (AUTO) 2.4 10^3/uL (1.5-3.5); LYMPHOCYTES % (AUTO) 34.9 %; MEAN CORPUSCULAR HEMOGLOBIN 31.6 pg (27.0-31.0); MEAN CORPUSCULAR HGB CONC 32.4 g/dL (32.0-36.0); MEAN CORPUSCULAR VOLUME 97.4 fL (80.0-94.0); MEAN PLATELET VOLUME 11.8 fL (7.4-11.4); MONOCYTES % (AUTO) 14.2 %; NEUTROPHILS # (AUTO) 3.3 10^3/uL (1.5-6.6); NEUTROPHILS % (AUTO) 47.8 %; PLT - PLATELET COUNT 135 10^3/uL (130-450); RED CELL DISTRIBUTION WIDTH 12.2 % (12.0-15.0); WHITE BLOOD COUNT 6.8 x10^3/uL (4.8-10.8)
[2020-09-22 04:53] LABS: CALCIUM 7.8 mg/dL (8.5-10.3); CREATININE 0.7 mg/dL (0.6-1.2); POTASSIUM 4.1 mmol/L (3.5-5.0)
[2020-09-22] MEDS: BUDESONIDE 0.5 MG/2 ML NEB INH SCH (07:19)
[2020-09-22] MEDS: ALBUTEROL NEB 2.5 MG/3 ML INH PRN (07:19)
[2020-09-22 08:53] VITALS: BP 134/65
[2020-09-22] MEDS: atenoloL 25 MG TABLET PO SCH (08:54)
[2020-09-22] MEDS: LORazepam 1 MG TABLET PO SCH (08:54)
[2020-09-22] MEDS ORDERED: DIVALPROEX ER 250 MG TABLET PO SCH (10:00)
--- NOTE | 2020-09-22 10:57 | Discharge Plan ---
Discharge Plan Problem Reviewed?: Yes Disposition: Home, Self Care Condition: Stable Prescriptions: Lactulose 15 ml PO TID #240 ml Diet: Regular Activity Restrictions: Activity as Tolerated Shower Restrictions: No (fall precaution) Instruction Topics: Lactulose oral solution, Epilepsy Meds, Epilepsy Self Care, Valproic Acid Divalproex Sodium capsules Health Concerns: elevated ammonia level and dehydration Plan of Treatment: Your ammonia level is controlled and you are oriented. You may keep hydration in the home, and Lactulose is prescribed to help you. Your neurologist recommended to reduce your Depakote dosage to 250mg twice daily. Our long term care social worker will help you make an appointment and Your neurologist office will contact you, you may contact with your neurologist office to make appointment as well. You may resume your home meds. Care Goals: stabilization and improvement of your medical conditions. Assessment: discussed the care plan with you, answered your questions, you understood. Additional Instructions or Follow Up instructions: you may followup with your PCP in one to two weeks, followup with your neurologist as out-pt. Should your symptoms return or worsen, you may present ER or call 911 for help. No Smoking: If you smoke, Please STOP! Call for help. Follow-up with: Juanita De Paz MD [Primary Care Provider] -
[2020-09-22] MEDS: ZONISAMIDE 100 MG PO SCH (11:01)
--- NOTE | 2020-09-22 11:11 | DISCHARGE SUMMARY ---
Discharge Summary Admit Date: 09/20/20 Discharge Date: 09/22/20 Discharging Provider: Waylon Pettit Primary Care Provider: Juanita Auguste Condition at Discharge: Stable Discharge Disposition: 01 Home, Self Care Discharge Facility Name: home - DIAGNOSES Discharge Diagnoses with Status of Each Condition: (1) Encephalopathy Patient is alert and orientated as pt's baseline. (2) Hyperammonemia Ammonia level is reduced from 80 to 51. Depakote has side effect to rise ammonia level. Called pt's neurologist , he recommended to reduce Depakote dosage from qid 250mg to bid 250mg daily. pt is prescribed Lactulose which helped pt reduce ammonia level in the hospital. also advise pt keep hydration in the home, since pt had hypernatremia in the admission. Pt may followup with pt's neurologist for further management. Dr. Yeung office will call pt to make appointment, social service agency director also help pt make appointment. Pt may call his neurologist make appointment as well (3) Epilepsy Stable. called Dr. Yeung, Patient neurologist in , reported pt's conditions, and discussed the care plan. He recommend to reduce Depakote dosage from 250 mg 4 times daily to twice daily, followup with his office. resume pt's other seizure home meds. (4) Hypernatremia resolved. explained and educate pt and his caregiver at the bedside the importance to keep pt hydration at home. pt may followup with his PCP in one to two week to recheck sodium and ammonia level, continue the management. (5) COPD (chronic obstructive pulmonary disease) Stable, resume home meds - [facility] History of Present Illness: refer from Dr. Zazueta's HPI on 09/20/20 This is a 64-year-old male with a past medical history significant for epilepsy, COPD who presents today from home as his sister was concerned that he was quite unsteady on his feet. History is obtained from both the patient and his sister who is present at bedside. The patient has unfortunately poorly controlled epilepsy with near daily seizures. He is on multiple antiepileptics at home. His sister tells me that he is normally a little unsteady and can be intermittently confused and due to the antiepileptics as well as occasional episodes of being postictal. He can also be mildly sedated at times it due to the Ativan he is on. She states that this morning he was much more unsteady compared to usual and was not himself. The patient admits to taking Percogesic and believes he only took 1 tablet last night. He takes this once a week for ankle pain which is chronic for him. His most recent seizure was today in the emergency department. He reports that they are usually minor and predominately involve his head and right upper extremity. He does not have grand mal seizures. His neurologist is at [facility]. He was recently started on a new medication called Fycompa. He has been on Depakote for many years. He denies any prior history of liver disease. He does not drink alcohol. He denies passing out today. In the emergency department, he was found to be afebrile with temperature of 36.4 C. His heart rate was in the 50s. Blood pressure was 113/57. He was not tachypneic and saturating well on room air. Labs were significant for his sodium of 147 and an ammonia level of 66.1. Initial Depakote level is 82.6. These findings were discussed with poison control who recommended rechecking labs in 4 hours. His Depakote level was trending down to 72 but his ammonia remained elevated at 67. They recommended rechecking labs again in 4 hours to ensure that the ammonia begins to trend down. This later increased to 82.4. Given the rise in the ammonia level, medicine was consulted for admission. I did discuss goals of care the patient and he would like to be a full code. - HOSPITAL COURSE Hospital Course: Patient was admitted for encephalopathy. Patient had a medical history of seizure which was Difficulty to control, patient taken 5 seizure medication at Home. Patient was found elevated ammonia level and hypernatremia as well. Patient was treated intravenous IV fluids, and lactulose. After treatment patient's hypernatremia is resolved, ammonia level was significantly reduced. Discussed the care plan with patient's neurologist Dr. Yeung. He recommend reduce patient's home medication Depakote to 250 mg twice daily from 250 mg 4 times daily. After treatment, patient became alert, orientated as his baseline. - ALLERGIES Allergies/Adverse Reactions: Allergies Allergy/AdvReac Type Severity Reaction Status Date / Time Iodinated Contrast Media Allergy Rash Verified 09/20/20 13:02 - MEDICATIONS Home Medications: Ambulatory Orders Medication Instructions Recorded Confirmed Albuterol Sulf [Ventolin Hfa 40 mg .ROUTE DAILY 09/20/20 09/21/20 Inhaler] Atenolol [Tenormin] 25 mg PO DAILY 09/20/20 09/21/20 Budesonide [Pulmicort Flexhaler] 80 mcg .ROUTE BID 09/20/20 09/21/20 Lorazepam [Ativan] 1 mg PO BID 09/20/20 09/21/20 OXcarbazepine [Trileptal] 600 mg PO BID 09/20/20 09/21/20 Perampanel [Fycompa] 8 mg PO DAILY 09/20/20 09/21/20 Pravastatin [Pravachol] 40 mg PO DAILY 09/20/20 09/21/20 Umeclidinium [place] [Incruse 62.5 mcg .ROUTE DAILY 09/20/20 09/21/20 Ellipta] Zonisamide [Zonegran] 100 mg PO QID 09/20/20 09/21/20 Divalproex ER [Depakote ER] 250 mg PO BID #60 tab 09/22/20 Lactulose 15 ml PO TID #240 ml 09/22/20 - PHYSICAL EXAM AT DISCHARGE General Appearance: positive: No acute distress, Alert. negative: Lethargic Eyes Bilateral: positive: Normal inspection, PERRL, No lid inflammation ENT: positive: ENT inspection nml, No signs of dehydration. negative: Purulent nasal drainage Neck: positive: Nml inspection, Trachea midline. negative: Thyromegaly, Tracheal deviation Respiratory: positive: Chest non-tender, Breath sounds nml. negative: Wheezes Cardiovascular: positive: Regular rate & rhythm, No murmur. negative: Tachycardia, Bradycardia, Systolic murmur, Diastolic murmur Peripheral Pulses: positive: 2+ Abdomen: positive: Non-tender, Nml bowel sounds, No distention. negative: Tenderness Back: positive: Nml inspection Skin: positive: Color nml, Warm, Dry. negative: Cyanosis, Diaphoresis, Pallor Extremities: positive: Non-tender, Full ROM, Nml appearance. negative: Calf tenderness Neurologic/Psychiatric: positive: Oriented x3, Motor nml, Sensation nml, Mood/affect nml. negative: Weakness, Sensory loss, Facial droop, Slurred/abnml speech - LABS Result Diagrams: 09/22/20 04:35 09/22/20 04:35 - SEPSIS Current Stage of Sepsis: Ruled out - FOLLOW UP Follow Up: Your ammonia level is controlled and you are oriented. You may keep hydration in the home, and Lactulose is prescribed to help you. Your neurologist recommended to reduce your Depakote dosage to 250mg twice daily. Our social service agency director will help you make an appointment and Your neurologist office will contact you, you may contact with your neurologist office to make appointment as well. You may resume your home meds. you may followup with your PCP in one to two weeks, followup with your neurologist as out-pt. Should your symptoms return or worsen, you may present ER or call 911 for help. - TIME SPENT Time Spent in Discharge (Minutes): 30
--- OUTSIDE RECORDS SUMMARY | 2020-09-27 22:44 | EXTERNAL MEDICAL SUMMARY RPT | Continuity of Care Document ---
:1955 Demographics Phone Unavailable Preferred Language Unknown Marital Status Unknown Faith Affiliation Unknown Race Unknown Ethnic Group Unknown Author Organization [facility] Address [address] [place] [address] Phone Social History date description facility [id number]
== END 2020-09-22 12:35 | disposition home or self-care (01) | DRG 92 ==
LOC: ED 12:50 → MS2 22:32 → OBSVTOIN 09-21 14:24
PROVIDERS: ADMIT Internal Medicine; ATTEND Nurse Practitioner Gerontology
DX: G92 Toxic encephalopathy (principal); G40.919 Epilepsy, unspecified, intractable, without status epilepticus; E72.20 Disorder of urea cycle metabolism, unspecified; T42.6X5A Adverse effect of other antiepileptic and sedative-hypnotic drugs, initial encounter; E87.0 Hyperosmolality and hypernatremia; J44.9 Chronic obstructive pulmonary disease, unspecified; G93.89 Other specified disorders of brain; F17.210 Nicotine dependence, cigarettes, uncomplicated; Z20.822 Contact with and (suspected) exposure to COVID-19; Z79.899 Other long term (current) drug therapy; Z79.51 Long term (current) use of inhaled steroids
CPT/HCPCS: 36415; 70450; 80048; 80053; 80164; 80306; 82140; 83735; 84100; 85025; 87631; 93005; 94640; 96361; 96374; 99285; A9270; G0378; G0480; J2060; J7626; J8499; 0202U; 80320

== ENCOUNTER 2020-10-03 09:31 | Outpatient (CLI) | payer MEDICARE, BC | END 2020-10-03 09:32 | disposition home or self-care (01) | LOC: LAB 09:31 | PROVIDERS: ATTEND Internal Medicine | DX: K72.90 Hepatic failure, unspecified without coma (principal) | CPT/HCPCS: 36415; 82140 ==

== ENCOUNTER 2020-11-17 09:42 | Outpatient (CLI) | payer MEDICARE, BC | END 2020-11-17 09:43 | disposition critical access hospital (66) | LOC: EMS 09:42 | DX: R07.9 Chest pain, unspecified (principal); M79.602 Pain in left arm | CPT/HCPCS: A0425; A0429 ==

== ENCOUNTER 2020-11-17 10:03 | Emergency (ER) | payer MEDICARE, BC ==
[2020-11-17] MEDS ORDERED: DEXAMETHASONE 10 MG/ML VIAL PO STA (10:12)
[2020-11-17] MEDS ORDERED: CHERRY SYRUP 10 ML UDC PO ONE (10:12)
--- NOTE | 2020-11-17 10:15 | ED Physician Documentation ---
PD HPI CHEST PAIN - Stated complaint Stated Complaint: CP - History obtained from History obtained from: Patient - History of Present Illness Timing - onset: How many weeks ago (1) Timing - onset during: Light activity Timing - duration: Weeks (1) Timing - details: Gradual onset, Still present Quality: Sharp, Pain Location: Left chest Radiation: No: Jaw, Neck, Back, Abdominal, Left upper extremity, Right upper extremity Improved by: Rest, Other medication (ibuprofen) Worsened by: Inspiration, Movement, Palpation Associated symptoms: No: Shortness of air, Diaphoresis, Nausea, Vomiting, Feeling faint / dizzy, General Weakness, Palpitations, Cough Similar symptoms before: Has not had sx before Recently seen: Not recently seen - Additional information Additional information: 64-year-old male has had a vagus nerve stimulator in place for seizure control and he has now developed some pain over the generator box. He does not have any inflammation over that he has tenderness to palpate it he has pain when he takes deep breath and he has been getting relief with the use of ibuprofen. Review of Systems Constitutional: denies: Fever Eyes: denies: Decreased vision Ears: denies: Ear pain Nose: denies: Congestion Throat: denies: Sore throat Cardiac: reports: Chest pain / pressure. denies: Palpitations Respiratory: denies: Dyspnea, Cough GI: denies: Abdominal Pain, Nausea, Vomiting : denies: Dysuria, Frequency PD PAST MEDICAL HISTORY - Past Medical History Respiratory: COPD Neuro: Seizure disorder - Past Surgical History Past Surgical History: Yes Neuro: Craniotomy - Present Medications Home Medications: Ambulatory Orders Medication Instructions Recorded Confirmed Albuterol Sulf [Ventolin Hfa 40 mg .ROUTE DAILY 09/20/20 11/17/20 Inhaler] Budesonide [Pulmicort Flexhaler] 80 mcg .ROUTE BID 09/20/20 11/17/20 Lorazepam [Ativan] 1 mg PO BID 09/20/20 11/17/20 OXcarbazepine [Trileptal] 300 mg PO TID 09/20/20 11/17/20 Perampanel [Fycompa] 12 mg PO DAILY 09/20/20 11/17/20 Pravastatin [Pravachol] 40 mg PO DAILY 09/20/20 11/17/20 Zonisamide [Zonegran] 200 mg PO BID 09/20/20 11/17/20 Divalproex ER [Depakote ER] 250 mg PO DAILY 11/17/20 11/17/20 Multivitamin 1 tab PO DAILY 11/17/20 11/17/20 - Allergies Allergies/Adverse Reactions: Allergies Allergy/AdvReac Type Severity Reaction Status Date / Time Iodinated Contrast Media Allergy Rash Verified 11/17/20 10:19 - Social History Does the pt smoke?: Yes Smoking Status: Current every day smoker Does the pt drink ETOH?: No Does the pt have substance abuse?: Yes - Immunizations Immunizations are current?: Yes - POLST Patient has POLST: No PD ED PE NORMAL - Vitals Vital signs reviewed: Yes - General General: Alert and oriented X 3, No acute distress, Well developed/nourished - HEENT HEENT: Atraumatic, PERRL, EOMI - Neck Neck: Supple, no meningeal sign, No bony TTP - Cardiac Cardiac: RRR, No murmur - Respiratory Respiratory: No respiratory distress, Clear bilaterally, Other (There is a generator box under a well-healed scar that has some mild tenderness without swelling or erythema. This is on the left anterior chest and palpation of this reproduces his pain the patient is experiencing.) - Abdomen Abdomen: Soft, Non tender - Back Back: No CVA TTP, No spinal TTP - Derm Derm: Normal color, Warm and dry, No rash - Extremities Extremities: No deformity, No edema - Neuro Neuro: Alert and oriented X 3, parking control officer 2-12 intact, No motor deficit, No sensory deficit, Normal speech Eye Opening: Spontaneous Motor: Obeys Commands Verbal: Oriented GCS Score: 15 - Psych Psych: Normal mood, Normal affect Results - Vitals Vitals: Vital Signs - 24 hr 11/17/20 11/17/20 10:16 11:17 Temperature 36.2 C L 36.6 C Heart Rate 71 72 Respiratory 16 16 Rate Blood Pressure 130/79 129/80 O2 Saturation 97 98 Oxygen O2 Source Room air - Labs Labs: Laboratory Tests 11/17/20 11/17/20 11/17/20 10:26 10:26 10:26 WBC 7.4 RBC 3.99 L Hgb 12.5 L Hct 38.4 L MCV 96.2 H MCH 31.3 H MCHC 32.6 RDW 11.9 L Plt Count 194 MPV 10.2 Neut # (Auto) 4.1 Lymph # (Auto) 2.1 [place] # (Auto) 0.9 Eos # (Auto) 0.2 Baso # (Auto) 0.0 Absolute Nucleated RBC 0.00 Nucleated RBC % 0.0 Sodium 140 Potassium 4.3 Chloride 112 H Carbon Dioxide 24 Anion Gap 4.0 L BUN 18 Creatinine 0.7 Estimated GFR (MDRD) 114 Glucose 98 Calcium 9.2 Total Bilirubin 0.5 AST 19 ALT 18 Alkaline Phosphatase 59 Troponin I High Sens 3.0 Total Protein 7.0 Albumin 3.7 Globulin 3.3 Albumin/Globulin Ratio 1.1 Lipase 46 - Rads (name of study) chest Radiology: Prelim report reviewed (No acute cardiopulmonary process demonstrated radiographically.), EMP read indepedently, See rad report PD MEDICAL DECISION MAKING - ED course Complexity details: reviewed results, re-evaluated patient, considered differential, d/w patient ED course: 64-year-old male with a vagus nerve stimulator in his chest has chest pain that is associated with the nerve impulse generator itself. There does not appear to be any swelling or erythema associated with this but the compression of the device in the area around the device does reproduce the pain the patient is having. He is administered dexamethasone here in the emergency department. Departure - Departure Disposition: 01 Home, Self Care Clinical Impression: Chest wall pain Condition: Stable Instructions: ED Chest Pain Costochondritis, ED Strain Chest Wall Follow-Up: Juanita De Paz MD [Primary Care Provider] - Discharge Date/Time: 11/17/20 11:18
[2020-11-17 10:28] LABS: BASOPHILS % (AUTO) 0.5 %; EOSINOPHILS # (AUTO) 0.2 10^3/uL (0.0-0.7); EOSINOPHILS % (AUTO) 2.3 %; HCT - HEMATOCRIT 38.4 % (42.0-52.0); HGB - HEMOGLOBIN 12.5 g/dL (14.0-18.0); LYMPHOCYTES # (AUTO) 2.1 10^3/uL (1.5-3.5); MEAN CORPUSCULAR HEMOGLOBIN 31.3 pg (27.0-31.0); MEAN CORPUSCULAR HGB CONC 32.6 g/dL (32.0-36.0); MEAN CORPUSCULAR VOLUME 96.2 fL (80.0-94.0); MEAN PLATELET VOLUME 10.2 fL (7.4-11.4); MONOCYTES # (AUTO) 0.9 10^3/uL (0.0-1.0); MONOCYTES % (AUTO) 12.7 %; NEUTROPHILS # (AUTO) 4.1 10^3/uL (1.5-6.6); NEUTROPHILS % (AUTO) 55.2 %; PLT - PLATELET COUNT 194 10^3/uL (130-450); RED BLOOD COUNT 3.99 10^6/uL (4.70-6.10); RED CELL DISTRIBUTION WIDTH 11.9 % (12.0-15.0); WHITE BLOOD COUNT 7.4 x10^3/uL (4.8-10.8)
--- NOTE | 2020-11-17 10:31 | XRAY Report ---
PROCEDURE: Chest 1 View X-Ray INDICATIONS: Chest pain TECHNIQUE: One view of the chest was acquired. COMPARISON: None FINDINGS: Surgical changes and devices: Left chest wall pulse generator, presumably a component of a cardiac pa cing device, although no cardiac leads are identified (potentially indicating either prior removal or the presence of radiolucent leads). Lungs and pleura: No pleural effusions or pneumothorax. Lungs are clear. Mediastinum: Mediastinal contours appear normal. Heart size is normal. Bones and chest wall: No suspicious bony lesions. Overlying soft tissues appear unremarkable. IMPRESSION: No acute cardiopulmonary process demonstrated radiographically. Reviewed by: Gianfranco Elliott MD on 11/17/2020 10:29 AM PDT Approved by: Gianfranco Elliott MD on 11/17/2020 10:29 AM PDT Station ID: [id number]
[2020-11-17 10:47] LABS: ALBUMIN 3.7 g/dL (3.2-5.5); ALBUMIN/GLOBULIN RATIO 1.1 (1.0-2.2); BILIRUBIN,TOTAL 0.5 mg/dL (0.2-1.0); CALCIUM 9.2 mg/dL (8.5-10.3); CREATININE 0.7 mg/dL (0.6-1.2); POTASSIUM 4.3 mmol/L (3.5-5.0)
--- OUTSIDE RECORDS SUMMARY | 2020-11-17 10:48 | EXTERNAL MEDICAL SUMMARY RPT | Continuity of Care Document ---
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 Unavailable Allergies Encounters Medications date description facility 20201117 BUDESONIDE All [id number] PRAVASTATIN SODIUM All [id number] ZONISAMIDE All [id number] LORAZEPAM All [id number] UMECLIDINIUM BROMIDE All [id number] ALBUTEROL SULFATE AERS All [id number] PERAMPANEL All [id number] DIVALPROEX SODIUM All [id number] PERAMPANEL All [id number] ZONISAMIDE All [id number] LORAZEPAM All [id number] DIVALPROEX SODIUM All [id number] BUDESONIDE All [id number] UMECLIDINIUM BROMIDE All [id number] PRAVASTATIN SODIUM All [id number] ALBUTEROL SULFATE AERS All Problems date description facility [id number] Chest pain, unspecified All [id number] Acute chest pain All Procedures date description facility 20201117 EKG Office Complete All Results Vital Signs date measurement value source 20201117 respiration_rate 18 /min 20201117 heart_rate 69 /min 20201117 BP_systolic 131 mm[Hg] [id number] BP_diastolic 71 mm[Hg]
[2020-11-17 11:19] VITALS: BP 129/80
== END 2020-11-17 11:18 | disposition home or self-care (01) ==
LOC: EDUNIT# → ED 10:03
DX: T85.840A Pain due to nervous system prosthetic devices, implants and grafts, initial encounter (principal); G40.909 Epilepsy, unspecified, not intractable, without status epilepticus; F17.200 Nicotine dependence, unspecified, uncomplicated
CPT/HCPCS: 36415; 71045; 80053; 83690; 84484; 85025; 99284; A9270

== ENCOUNTER 2020-12-18 19:10 | Emergency (ER) | payer MEDICARE, BC ==
--- NOTE | 2020-12-18 19:49 | ED Physician Documentation ---
PD HPI SEIZURE - Stated complaint Stated Complaint: SZ/GLF/HEAD LAC - Chief complaint Chief Complaint: Laceration - History obtained from History obtained from: Patient - History of Present Illness Timing - onset: Today Witnessed: Witnessed Number of seizures: Single (Has a history of's generalized and petit mall seizures. He states he has some often. Had a seizure today which caused him to fall and hit his head with a laceration.), Lasted - seconds Description of seizure activity: Generalized Injury during seizure: Fell, Head injury (scalp lac upper occipital area) Associated symptoms: Headache (just locally at injury site; no generalized headache.) History of seizures: Known seizure disorder Contributing factors: No: Off meds, Changed meds, Fever Similar symptoms before: Diagnosis (seizures frequently despite meds - every few weeks general; petit mal almost daily.) Recently seen: Not recently seen Review of Systems Constitutional: denies: Fever, Chills Nose: denies: Rhinorrhea / runny nose, Congestion Throat: denies: Sore throat Respiratory: denies: Cough GI: denies: Nausea, Vomiting, Diarrhea Skin: reports: Laceration (s) (scalp today) Musculoskeletal: denies: Neck pain, Back pain Neurologic: denies: Focal weakness, Altered mental status PD PAST MEDICAL HISTORY - Past Medical History Respiratory: COPD Neuro: Seizure disorder - Past Surgical History Past Surgical History: Yes Neuro: Craniotomy - Present Medications Home Medications: Ambulatory Orders Medication Instructions Recorded Confirmed Albuterol Sulf [Ventolin Hfa 40 mg .ROUTE DAILY 09/20/20 11/17/20 Inhaler] Budesonide [Pulmicort Flexhaler] 80 mcg .ROUTE BID 09/20/20 11/17/20 Lorazepam [Ativan] 1 mg PO BID 09/20/20 11/17/20 OXcarbazepine [Trileptal] 300 mg PO TID 09/20/20 11/17/20 Perampanel [Fycompa] 12 mg PO DAILY 09/20/20 11/17/20 Pravastatin [Pravachol] 40 mg PO DAILY 09/20/20 11/17/20 Zonisamide [Zonegran] 200 mg PO BID 09/20/20 11/17/20 Divalproex ER [Depakote ER] 250 mg PO DAILY 11/17/20 11/17/20 Multivitamin 1 tab PO DAILY 11/17/20 11/17/20 - Allergies Allergies/Adverse Reactions: Allergies Allergy/AdvReac Type Severity Reaction Status Date / Time Iodinated Contrast Media Allergy Rash Verified 12/18/20 19:21 - Social History Does the pt smoke?: Yes Smoking Status: Current every day smoker Does the pt drink ETOH?: No Does the pt have substance abuse?: Yes - Immunizations Immunizations are current?: Yes - POLST Patient has POLST: No PD ED PE NORMAL - Vitals Vital signs reviewed: Yes - General General: Alert and oriented X 3, No acute distress, Well developed/nourished - HEENT HEENT: PERRL, EOMI, Moist mucous membranes, Pharynx benign, Other (Occipital area with a 1.5 cm laceration full-thickness to the fatty layer. Mild bleeding at this time. No foreign bodies noted.) - Neck Neck: Supple, no meningeal sign, No bony TTP, No adenopathy - Cardiac Cardiac: RRR, No murmur - Respiratory Respiratory: Clear bilaterally - Abdomen Abdomen: Soft, Non tender - Back Back: No spinal TTP - Derm Derm: Normal color, Warm and dry - Extremities Extremities: Normal ROM s pain - Neuro Neuro: Alert and oriented X 3, die developer 2-12 intact, No motor deficit, No sensory deficit, Normal speech, Other Eye Opening: Spontaneous Motor: Obeys Commands Verbal: Oriented GCS Score: 15 - Psych Psych: Normal mood, Normal affect Results - Vitals Vitals: Vital Signs - 24 hr 12/18/20 12/18/20 12/18/20 19:18 19:30 21:01 Temperature 36.3 C L Heart Rate 79 78 70 Respiratory 16 20 16 Rate Blood Pressure 111/62 121/62 111/58 L O2 Saturation 95 96 95 Oxygen O2 Source Room air Procedures - Laceration (location) occipital scalp Length in cm: 1.5 Wound type: Linear, Into subcut fat, Clean Neurovascular status: Sensory intact Anesthesia: Lidocaine 1%, With bicarb Wound preparation: Irrigated copiously NS, Wound explored, To the base. No: FB identified Skin layer closure: Yobani, Sutures - enter # (6) PD MEDICAL DECISION MAKING - ED course Complexity details: re-evaluated patient (still seems okay and headache much improved with local anesth and toradol. ), considered differential (History of recurrent seizures and is on multiple medications. No recent illness. Main complaint is scalp laceration otherwise has frequent seizures at home.), d/w patient Departure - Departure Disposition: 01 Home, Self Care Clinical Impression: Recurrent seizures, Fall due to seizure Scalp laceration Qualifiers: Encounter type: initial encounter Qualified Code(s): S01.01XA - Laceration without foreign body of scalp, initial encounter Condition: Stable Record reviewed to determine appropriate education?: Yes Instructions: ED Laceration Scalp Stitch Or Stap Follow-Up: Juanita De Paz MD [Primary Care Provider] - Comments: Well-hydrated. Continue usual medications. Tylenol or ibuprofen as needed for pains. My suture care instructions: it is okay to wash and shower. Clean off the wound twice a day with soap and water, or peroxide and water. Apply some antibiotic ointment to it to keep it moist. Also to watch for signs of infection such as purulence, redness or increasing pain. Return to your primary care or the ER at the specified time for suture removal. Staple removal 8 to 10 days. Discharge Date/Time: 12/18/20 21:08
[2020-12-18] MEDS ORDERED: KETOROLAC 30 MG/ML VIAL IM STA (20:03)
[2020-12-18] MEDS ORDERED: BUFFERED LIDOCAINE 10 ML SYRINGE SUBQ STA (20:03)
[2020-12-18] MEDS ORDERED: ACETAMINOPHEN 325 MG TABLET PO STA (20:03)
[2020-12-18] MEDS ORDERED: BACITRACIN ZINC OINT 1 PACKET TOP STA (20:58)
[2020-12-18 21:04] VITALS: BP 111/58
== END 2020-12-18 21:08 | disposition home or self-care (01) ==
LOC: ED 19:10
DX: S01.01XA Laceration without foreign body of scalp, initial encounter (principal); W19.XXXA Unspecified fall, initial encounter; G40.909 Epilepsy, unspecified, not intractable, without status epilepticus; F17.200 Nicotine dependence, unspecified, uncomplicated
CPT/HCPCS: 12001; 96372; 99284; A9270

== ENCOUNTER 2021-10-06 09:45 | Outpatient (CLI) | payer MEDICARE, BC ==
--- NOTE | 2021-10-06 10:21 | XRAY Report ---
PROCEDURE: Elbow 3 View LT INDICATIONS: L ELBOW PAIN AFTER TRAUMA TECHNIQUE: 3 views of the elbow were acquired. COMPARISON: None. FINDINGS: BONES/JOINT: No acute, displaced fracture or dislocation. No appreciable joint effusion. SOFT TISSUES: Soft tissue prominence overlying the olecranon, which may reflect bursitis. IMPRESSION: 1.No acute osseous abnormality of the elbow. 2.Soft tissue prominence overlying the olecranon, which may reflect bursitis. Reviewed by: Eleuterio Bah MD on 10/06/2021 10:19 AM PDT Approved by: Eleuterio Bah MD on 10/06/2021 10:19 AM PDT Station ID: [id number]
== END 2021-10-06 09:46 | disposition home or self-care (01) ==
LOC: DI 09:45
PROVIDERS: ATTEND Internal Medicine
DX: M25.522 Pain in left elbow (principal); R93.6 Abnormal findings on diagnostic imaging of limbs; R93.89 Abnormal findings on diagnostic imaging of other specified body structures

== ENCOUNTER 2022-04-18 08:00 | Outpatient (CLI) | payer MEDICARE, BC ==
[2022-04-18 16:38] LABS: BASOPHILS # (AUTO) 0.1 10^3/uL (0.0-0.1); BASOPHILS % (AUTO) 0.6 %; EOSINOPHILS # (AUTO) 0.2 10^3/uL (0.0-0.7); EOSINOPHILS % (AUTO) 2.3 %; HCT - HEMATOCRIT 42.6 % (42.0-52.0); HGB - HEMOGLOBIN 13.8 g/dL (14.0-18.0); LYMPHOCYTES # (AUTO) 1.9 10^3/uL (1.5-3.5); LYMPHOCYTES % (AUTO) 23.1 %; MEAN CORPUSCULAR HEMOGLOBIN 30.7 pg (27.0-31.0); MEAN CORPUSCULAR HGB CONC 32.4 g/dL (32.0-36.0); MEAN CORPUSCULAR VOLUME 94.9 fL (80.0-94.0); MEAN PLATELET VOLUME 11.3 fL (7.4-11.4); MONOCYTES # (AUTO) 0.9 10^3/uL (0.0-1.0); MONOCYTES % (AUTO) 11.4 %; NEUTROPHILS # (AUTO) 5.1 10^3/uL (1.5-6.6); NEUTROPHILS % (AUTO) 62.4 %; PLT - PLATELET COUNT 211 10^3/uL (130-450); RED BLOOD COUNT 4.49 10^6/uL (4.70-6.10); RED CELL DISTRIBUTION WIDTH 12.3 % (12.0-15.0); WHITE BLOOD COUNT 8.2 x10^3/uL (4.8-10.8)
[2022-04-18 16:58] LABS: ALBUMIN/GLOBULIN RATIO 1.4 (1.0-2.2); ALKALINE PHOSPHATASE 58 IU/L (42-121); ALT ALANINE AMINOTRANSFERASE 24 IU/L (10-60); AST ASPARTATE AMINOTRANSFERASE 24 IU/L (10-42); BILIRUBIN,TOTAL 0.4 mg/dL (0.2-1.0); BUN - BLOOD UREA NITROGEN 23 mg/dL (6-20); CARBON DIOXIDE - CO2 23 mmol/L (21-32); CHLORIDE 111 mmol/L (101-111); CHOLESTEROL 186 mg/dL; CREATININE 0.7 mg/dL (0.6-1.2); GFR - MDRD 113 (>89); GLUCOSE 101 mg/dL (70-100); HDL CHOLESTEROL 47 mg/dL; LDL CHOLESTEROL,CALCULATED 123 mg/dL; LDL/HDL RATIO 2.6 (<3.6); POTASSIUM 4.1 mmol/L (3.5-5.0); SODIUM 143 mmol/L (135-145); TOTAL PROTEIN 6.9 g/dL (6.7-8.2); TRIGLYCERIDES 81 mg/dL; VLDL CHOLESTEROL 16 mg/dL
[2022-04-18 17:01] LABS: PSA TOTAL 0.98 ng/mL (0.000-2.000)
== END 2022-04-18 23:59 | disposition home or self-care (01) ==
LOC: LAB.R 08:00
PROVIDERS: ATTEND Internal Medicine
DX: Z00.00 Encounter for general adult medical examination without abnormal findings (principal); R07.9 Chest pain, unspecified; R06.09 Other forms of dyspnea; Z82.49 Family history of ischemic heart disease and other diseases of the circulatory system; K72.90 Hepatic failure, unspecified without coma; Z86.010 Personal history of colon polyps; E78.5 Hyperlipidemia, unspecified; L40.9 Psoriasis, unspecified; Z12.5 Encounter for screening for malignant neoplasm of prostate; R56.9 Unspecified convulsions; Z72.0 Tobacco use
CPT/HCPCS: 80053; 80061; 83721; 84153; 84443; 85025

== ENCOUNTER 2023-05-22 07:37 | Outpatient (CLI) | payer MEDICARE, BC ==
[2023-05-22 08:00] LABS: BASOPHILS % (AUTO) 0.6 %; EOSINOPHILS # (AUTO) 0.3 10^3/uL (0.0-0.7); EOSINOPHILS % (AUTO) 3.9 %; HCT - HEMATOCRIT 42.7 % (42.0-52.0); HGB - HEMOGLOBIN 13.6 g/dL (14.0-18.0); LYMPHOCYTES # (AUTO) 1.5 10^3/uL (1.5-3.5); MEAN CORPUSCULAR HEMOGLOBIN 30.4 pg (27.0-31.0); MEAN CORPUSCULAR HGB CONC 31.9 g/dL (32.0-36.0); MEAN CORPUSCULAR VOLUME 95.5 fL (80.0-94.0); MEAN PLATELET VOLUME 9.9 fL (7.4-11.4); MONOCYTES # (AUTO) 0.7 10^3/uL (0.0-1.0); MONOCYTES % (AUTO) 10.9 %; NEUTROPHILS # (AUTO) 3.9 10^3/uL (1.5-6.6); NEUTROPHILS % (AUTO) 60.3 %; PLT - PLATELET COUNT 199 10^3/uL (130-450); RED BLOOD COUNT 4.47 10^6/uL (4.70-6.10); RED CELL DISTRIBUTION WIDTH 12.2 % (12.0-15.0); WHITE BLOOD COUNT 6.4 x10^3/uL (4.8-10.8)
[2023-05-22 08:09] LABS: ALBUMIN 4.1 g/dL (3.2-5.5); ALKALINE PHOSPHATASE 49 IU/L (42-121); ALT ALANINE AMINOTRANSFERASE 23 IU/L (10-60); AST ASPARTATE AMINOTRANSFERASE 22 IU/L (10-42); BILIRUBIN,TOTAL 0.5 mg/dL (0.2-1.0); BUN - BLOOD UREA NITROGEN 23 mg/dL (6-20); CALCIUM 9.3 mg/dL (8.5-10.3); CARBON DIOXIDE - CO2 24 mmol/L (21-32); CHLORIDE 112 mmol/L (101-111); CHOL/HDL RATIO 4.5 (<5.0); CHOLESTEROL 161 mg/dL; CREATININE 0.9 mg/dL (0.6-1.3); GFR - MDRD 84 (>89); GLUCOSE 103 mg/dL (74-104); HDL CHOLESTEROL 36 mg/dL; LDL CHOLESTEROL,CALCULATED 78 mg/dL; LDL/HDL RATIO 2.2 (<3.6); POTASSIUM 4.1 mmol/L (3.5-4.5); SODIUM 142 mmol/L (135-145); TOTAL PROTEIN 6.2 g/dL (6.4-8.9); TRIGLYCERIDES 236 mg/dL (48-352); VLDL CHOLESTEROL 47 mg/dL
[2023-05-22 08:22] LABS: THYROID STIMULATING HORMONE 1.15 uIU/mL (0.34-5.60)
== END 2023-05-22 07:38 | disposition home or self-care (01) ==
LOC: LAB 07:37
PROVIDERS: ATTEND Internal Medicine
DX: Z00.00 Encounter for general adult medical examination without abnormal findings (principal); J44.9 Chronic obstructive pulmonary disease, unspecified; Z86.010 Personal history of colon polyps; Z87.820 Personal history of traumatic brain injury; E78.5 Hyperlipidemia, unspecified; N20.0 Calculus of kidney; L40.9 Psoriasis, unspecified; R56.9 Unspecified convulsions; Z79.899 Other long term (current) drug therapy
CPT/HCPCS: 36415; 80053; 80061; 82306; 83721; 84443; 85025

== ENCOUNTER 2023-09-06 11:09 | Outpatient (CLI) | payer MEDICARE, BC ==
--- NOTE | 2023-09-06 11:30 | XRAY Report ---
PROCEDURE: Chest 2V INDICATIONS: COUGH TECHNIQUE: 2 views of the chest were acquired. COMPARISON: 11/17/2020. FINDINGS: Surgical changes and devices: Left chest wall pacemaker is seen. Lungs and pleura: No pleural effusions or pneumothorax. Lungs are clear. Mediastinum: Mediastinal contours appear normal. Heart size is normal. Bones and chest wall: No suspicious bony lesions. Overlying soft tissues appear unremarkable. IMPRESSION: No acute cardiopulmonary process. Reviewed by: Deni Graevs MD on 09/06/2023 11:29 AM PDT Approved by: Deni Graves MD on 09/06/2023 11:29 AM PDT Station ID: [id number]
== END 2023-09-06 11:10 | disposition home or self-care (01) ==
LOC: DI 11:09
PROVIDERS: ATTEND Internal Medicine
DX: R05.9 Cough, unspecified (principal)